=== PATIENT | female | born 1980 | race Caucasian/White ===

== ENCOUNTER 2017-08-29 08:42 | Emergency (ER) | END 2017-08-29 11:00 | disposition home or self-care (01) ==

== ENCOUNTER 2018-10-21 18:13 | Emergency (ER) | payer MEDICAID ==
[~2018-10-21] VITALS: Ht 149.9 cm; Wt 67.3 kg
[~2018-10-21 18:13] MED LIST: ACET500C5 PO; FERR-55 PO; NAPR-985 PO; PNV1TABL43 PO
[2018-10-21 18:35] VITALS: Ht 149.9 cm; Wt 67.3 kg
--- NOTE | 2018-10-21 21:49 | ERD ---
ER Documentation Chief Complaint Chief Complaint Pt reports umbilical pain x 4 months HPI Patient is a 38-year-old female, past surgical history of , who presents the ER for concerns of lower abdominal pain for the last 4 months. Patient states initially she was having "itching" throughout her lower abdomen and now she is having bloating. Patient denies any nausea, vomiting, fevers, chills or diarrhea. Patient also does admit to dysuria. She denies any frequency or urgency. Patient denies any diarrhea. Patient denies any recent travel. ROS All systems reviewed and are negative except as per history of present illness. Medications Home Meds Active Scripts Acetaminophen* (Tylophen*) 500 Mg Capsule, 1 CAP PO Q6H PRN for PAIN AND OR ELEVATED TEMP, #30 CAP Prov:ROJELIO SALDANA PA-C 08/29/17 Naproxen* (Naprosyn*) 500 Mg Tablet, 500 MG PO BID PRN for PAIN AND/OR INFLAMMATION, #30 TAB Prov:ROJELIO SALDANA PA-C 08/29/17 Reported Medications Ferrous Sulfate* (Ferrous Sulfate*) 325 Mg Tablet, 325 MG PO DAILY 04/30/13 Vit/Fe Fumarate/Fa* ( Vitamin Tablet*) 1 Tab Tablet, 1 TAB PO DAILY 04/30/13 Allergies Allergies: Coded Allergies: No Known Allergy (Verified , 04/30/13) PMhx/Soc History of Surgery: Yes () Hx Alcohol Use: No Hx Substance Use: No Hx Tobacco Use: No Smoking Status: Never smoker FmHx Family History: No diabetes Physical Exam Vitals Vital Signs Date Temp Pulse Resp B/P (MAP) Pulse Ox O2 O2 Flow FiO2 Time Delivery Rate 10/21/18 98.7 71 18 112/64 98 18:35 (80) Physical Exam GENERAL: Well-developed, well-nourished female. Appears in no acute distress. HEAD: Normocephalic, atraumatic. EYES: Pupils are equally reactive bilaterally. EOMs grossly intact. No conjunctival erythema. ENT: Moist mucous membranes. No uvula deviation. No kissing tonsils. NECK: Supple. No meningismus. Normal range of motion of the neck. LUNG: Clear to auscultation bilaterally. No rhonchi, wheezing, rales or coarse breath sounds. HEART: Regular rate and rhythm. No murmurs, rubs or gallops. ABDOMEN: No scars, ecchymosis or rashes noted. Soft,and nondistended. Tender to palpation in the suprapubic region. Positive bowel sounds in all four quadrants. No rebound tenderness, no guarding. (-) McBurney's point tenderness. No CVA tenderness. EXTREMITIES: Equal pulses bilaterally. No peripheral clubbing, cyanosis or edema. No unilateral leg swelling. NEUROLOGIC: Alert and oriented. Moving all four extremities without any difficulty. Normal speech. Steady gait. SKIN: Normal color. Warm and dry. No rashes or lesions. Result Diagram: 10/21/18202510/21/182025 Results 24 hrs Laboratory Tests Test 10/21/18 20:16 10/21/18 20:26 POC Beta HCG, Qualitative NEGATIVE White Blood Count 9.1 10^3/ul Red Blood Count 3.67 10^6/ul Hemoglobin 11.3 g/dl Hematocrit 34.2 % Mean Corpuscular Volume 93.2 fl Mean Corpuscular Hemoglobin 30.8 pg Mean Corpuscular Hemoglobin Concent 33.0 g/dl Red Cell Distribution Width 12.4 % Platelet Count 271 10^3/UL Mean Platelet Volume 9.6 fl Immature Granulocytes % 0.200 % Neutrophils % 57.8 % Lymphocytes % 33.6 % Monocytes % 7.1 % Eosinophils % 1.0 % Basophils % 0.3 % Nucleated Red Blood Cells % 0.0 /100WBC Immature Granulocytes # 0.020 10^3/ul Neutrophils # 5.3 10^3/ul Lymphocytes # 3.1 10^3/ul Monocytes # 0.7 10^3/ul Eosinophils # 0.1 10^3/ul Basophils # 0.0 10^3/ul Nucleated Red Blood Cells # 0.0 10^3/ul Urine Color YELLOW Urine Clarity SLIGHTLY CLOUDY Urine pH 6.0 Urine Specific [place] 1.021 Urine Ketones NEGATIVE mg/dL Urine Nitrite NEGATIVE mg/dL Urine Bilirubin NEGATIVE mg/dL Urine Urobilinogen NEGATIVE mg/dL Urine Leukocyte Esterase NEGATIVE Alan/ul Urine Microscopic RBC 1 /HPF Urine Microscopic WBC 2 /HPF Urine Squamous Epithelial Cells FEW /HPF Urine Bacteria FEW /HPF Urine Mucus FEW /HPF Urine Hemoglobin NEGATIVE mg/dL Urine Glucose NEGATIVE mg/dL Urine Total Protein NEGATIVE mg/dl Sodium Level 142 mmol/L Potassium Level 3.6 mmol/L Chloride Level 106 mmol/L Carbon Dioxide Level 24 mmol/L Anion Gap 12 Blood Urea Nitrogen 17 mg/dl Creatinine 0.61 mg/dl Est Glomerular Filtrat Rate mL/min > 60 mL/min Glucose Level 96 mg/dl Calcium Level 9.2 mg/dl Total Bilirubin 0.3 mg/dl Direct Bilirubin 0.00 mg/dl Indirect Bilirubin 0.3 mg/dl Aspartate Amino Transf (AST/SGOT) 19 IU/L Alanine Aminotransferase (ALT/SGPT) 12 IU/L Alkaline Phosphatase 79 IU/L Total Protein 7.4 g/dl Albumin 4.0 g/dl Globulin 3.40 g/dl Albumin/Globulin Ratio 1.17 Lipase 66 U/L Procedures/MDM ED COURSE: The patient was stable throughout ED course. I kept the patient and/or family informed of laboratory and diagnostic imaging results throughout the ED course. DIAGNOSTIC IMAGING: Read by radiologist. DIAGNOSTIC IMAGING REPORT Patient: NIKKI ESPARZA : 1980 Age: 38 Sex: F MR #: [id number] DOS: 10/21/181957 Ordering MD: CRISTINA SERVIN PA-C Location: [facility]TE Room/Bed: PROCEDURE: US Pelvis. CLINICAL INDICATION: Pain TECHNIQUE: Multiple sonographic images of the pelvis were obtained utilizing a transabdominal and endovaginal technique. The images were reviewed on a PACS workstation. COMPARISON: CT abdomen and pelvis dated 08/29/2017 FINDINGS: Transabdominal images: Uterus is normal in size and contour. Uterine dimensions are number. No adnexal masses are grossly evident. There does not appear to be any large volume of free fluid in the pelvis. The urinary bladder is empty, resulting in poor transabdominal sonographic windows. Transvaginal imaging: The myometrium appears heterogeneous in echotexture. There is a probable hypoechoic subserosal leiomyoma arising from the fundus, measuring approximately 15 mm in long axis.. The endometrium appears unremarkable with a thickness of approximately 812 mm. The right ovary appears normal and measures 3.0 x 2.3 x 1.9 cm. The left ovary is not identified transabdominally or transvaginally Blood flow is evident in the right ovary. There is a physiologically normal volume of free fluid in the pelvis. IMPRESSION: 1. Small uterine leiomyomata. 2. Sonographically unremarkable right ovary. 3. Nonvisualization of the left ovary. RPTAT:AAJJ Physician Elia Date Time Electronically viewed and signed by Physician Elia on 10/21/2018 22:08 GW/ CC: CRISTINA SERVIN PA-C [id number] MEDICAL DECISION MAKING: This is a 38-year-old female presents ER for concerns of abdominal pain for the last 4 months. Vital signs were reviewed. Patient is afebrile. Blood work was obtained. CBC showed no evidence of systemic infection or severe anemia. CMP showed no evidence of electrolyte abnormalities, severe acidosis, alkalosis, renal failure, or liver disease. Lipase showed no evidence of acute pancreatitis. UA showed no evidence of acute infection or hematuria. Urine test was negative. Pelvic ultrasound did show small uterine fibroid. Patient was advised that she will need to follow-up with her [employer] for further management of the symptoms. At this time, patient presentation is most consistent with fibroid, abdominal pain and pelvic pain. Differential diagnosis included was not limited to acute coronary syndrome, AAA, mesenteric ischemia, lower lobe pneumonia, DKA, bowel perforation, cholecystitis, choledocholithiasis, ascending cholangitis, hepatic abscess, pancreatitis, PUD, gastritis, GERD, splenic rupture, diverticulitis, UTI, pyelonephritis, nephrolithiasis, appendicitis, constipation, , ectopic , PID, ovarian torsion or tubo-ovarian abscess. Patient was nontoxic, [id number] prior to discharge. Patient advised to follow-up with [employer]. Referral information provided. PRESCRIPTIONS: Tylenol DISCHARGE: At this time, patient is stable for discharge and outpatient management. I have instructed the patient to follow-up with his/her primary care physician in 1-2 days. I have instructed the patient to promptly return to the ER at any time for any new or worsening symptoms including increased pain, nausea, vomiting, diarrhea, fever, weakness or LOC. The patient and/or family expressed understanding of and agreement with this plan. All questions were answered. Home care instructions were provided. Disclaimer: Inadvertent spelling and grammatical errors are likely due to EHR/dictation software use and do not reflect on the overall quality of patient care. Also, please note that the electronic time recorded on this note does not necessarily reflect the actual time of the patient encounter. Departure Diagnosis: Primary Impression: Abdominal pain Abdominal location: unspecified location Qualified Codes: R10.9 - Unspecified abdominal pain Additional Impression: Fibroid uterus Uterine leiomyoma location: unspecified location Qualified Codes: D25.9 - Leiomyoma of uterus, unspecified Condition: Fair Patient Instructions: Abdominal Pain Referrals: [facility] YOU HAVE RECEIVED A MEDICAL SCREENING EXAM AND THE RESULTS INDICATE THAT YOU DO NOT HAVE A CONDITION THAT REQUIRES URGENT TREATMENT IN THE EMERGENCY DEPARTMENT. FURTHER EVALUATION AND TREATMENT OF YOUR CONDITION CAN WAIT UNTIL YOU ARE SEEN IN YOUR DOCTORS OFFICE WITHIN THE NEXT 1-2 DAYS. IT IS YOUR RESPONSIBILITY TO MAKE AN APPOINTMENT FOR FOLOW-UP CARE. IF YOU HAVE A PRIMARY DOCTOR --you should call your primary doctor and schedule an appointment IF YOU DO NOT HAVE A PRIMARY DOCTOR YOU CAN CALL OUR PHYSICIAN REFERRAL HOTLINE AT IF YOU CAN NOT AFFORD TO SEE A PHYSICIAN YOU CAN CHOSE FROM THE FOLLOWING [facility] [address] [facility]. [facility] [address] [facility]. [facility] [address] [facility] [address] [facility] [facility] [address] [facility]. [facility]. [address] [facility]. [facility] YOU HAVE RECEIVED A MEDICAL SCREENING EXAM AND THE RESULTS INDICATE THAT YOU DO NOT HAVE A CONDITION THAT REQUIRES URGENT TREATMENT IN THE EMERGENCY DEPARTMENT. FURTHER EVALUATION AND TREATMENT OF YOUR CONDITION CAN WAIT UNTIL YOU ARE SEEN IN YOUR DOCTORS OFFICE WITHIN THE NEXT 1-2 DAYS. IT IS YOUR RESPONSIBILITY TO MAKE AN APPOINTMENT FOR FOLOW-UP CARE. IF YOU HAVE A PRIMARY DOCTOR --you should call your primary doctor and schedule and appointment IF YOU DO NOT HAVE A PRIMARY DOCTOR YOU CAN CALL OUR PHYSICIAN REFERRAL HOTLINE AT . IF YOU CAN NOT AFFORD TO SEE A PHYSICIAN YOU CAN CHOSE FROM THE FOLLOWING [facility] INSTITUTIONS: [facility] [address] [place] [address] [facility] [address] [place] [address] MER[facility]ED WITH [facility] [address] [place] [address] [employer] [place] [address] [facility] [address] [place] [address] OFFICE FAX , [facility] [address] [place], [place] [id number]. DAILY, [place] [address] [place] [address] [address] THAO, [facility] [address] [facility], [facility] [address], [facility] [address] [address] [facility] [address] [place] [address] [facility] [address] [place] [address] [address] [facility] [address] - [address] NO, IS[place]EL[place] [address], [facility] [address] [address], [place] [address] [facility]. [address], [facility] [address] [facility] [facility] [address] [place], [place] [id number] Additional Instructions: Llame al doctor MAANA y brandyn bruna MARY PARA DENTRO DE 1-2 DAVIS.Dgale a la secretaria que nosotros le instruimos hacer esta mary.Avise o llame si bird condicin se empeora antes de la mary. Regresa aqui si peor o no mejor. CRISTINA SERVIN PA-C Oct 21, 2018 21:49
[2018-10-21] MEDS ORDERED: ACET500C5 PO (22:13)
[2018-10-21 22:26] VITALS: BP 109/60; PULSE 66; RESP 16
== END 2018-10-21 22:26 | disposition home or self-care (01) ==
LOC: FTE 18:13
DX: D25.9 Leiomyoma of uterus, unspecified (principal); R10.2 Pelvic and perineal pain
CPT/HCPCS: 36415; 76830; 76856; 80053; 81001; 81003; 81025; 83690; 85025; Z7502